=== PATIENT | female | born 1990 | race Caucasian/White ===

== ENCOUNTER 2021-04-22 01:13 | Outpatient (CLI) | payer BC, MEDICAID, SELFPAY ==
--- NOTE | 2021-04-22 | DI.US_ITS ---
Exam(s) US OB 2-3 TRIMESTER W MOD EXAM: US OB 2-3 TRIMESTER W MOD CLINICAL HISTORY: ANATOMY SCAN. TECHNIQUE: Transabdominal obstetrical ultrasound was performed. COMPARISON: US US OB 1ST TRIMESTER from 02/05/2021 FINDINGS: There is a single viable intrauterine gestation with cardiac activity identified-149 bpm. Amniotic fluid: There is a normal amount of amniotic fluid. Placental location: The placenta is anterior grade 1,with no evidence of placenta previa.Distance fro m the tip of the placenta to the internal cervical os is 4.4 cm on today's study ANATOMY: A 3 vessel umbilical cord is seen. A four-chamber cardiac view was obtained. Right and left ventricular outflow tracts were imaged. There are no obvious abnormalities of the spinal column evident. There is no obvious abnormal ity of the anterior abdominal wall. stomach was not identified on today's study. Urinar y bladder was identified and there is no evidence of hydronephrosis. No abnormalities of the upper lip region are identified. No evidence of choroid plexus cysts i n the brain. Dating parameters place this at approximately 19 weeks and 6 days gestational age. BPD measures 19 weeks and 5 days HC measures 19 weeks and 5 days AC measures 20 weeks and 1 day FL measures 19 weeks and 5 days Estimated weight is 321 gm-0 pounds 11 ounces. Fetus is at the 49th percentile on the Hadlock scale. IMPRESSION:: Single viable intrauterine gestation which is approximately 19 weeks and 6 days gestati onal age, implying an ANDREW of September 10, 2021. There are no obvious anomalies evident on today's study. However, we were not able to identify the stomach on today's study. The placenta is anterior with no evidence of placenta previa. There is a normal amount of amniotic fluid. DATA REPOSITORY:
== END 2021-04-22 01:33 ==
PROVIDERS: PCP Internal Medicine; Visit Provider Midwife
DX: Z34.92 Encounter for supervision of normal pregnancy, unspecified, second trimester (principal); Z3A.19 19 weeks gestation of pregnancy
CPT/HCPCS: 76805

== ENCOUNTER 2021-05-27 01:53 | Outpatient (CLI) | payer MEDICAID, SELFPAY ==
--- NOTE | 2021-05-27 | DI.US_ITS ---
Exam(s) US OB F/U FACIAL/LVOT/RVOT EXAM: US OB F/U FACIAL/LVOT/RVOT CLINICAL HISTORY: F/U SURVEY, STOMACH. TECHNIQUE: Transabdominal obstetrical ultrasound was performed. COMPARISON: US US OB 2-3 TRIMESTER W MOD from 04/22/2021 FINDINGS: There is a single viable intrauterine gestation with cardiac activity identified-136 bpm The fetus is presently in breech position . Amniotic fluid: There is a normal amount of amniotic fluid. Placental location: The placenta is anterior grade 1,with no evidence of placenta previa. ANATOMY: On today's study the stomach was identified, this completing the survey Dating parameters were not performed today IMPRESSION:: Viable intrauterine gestation. survey completed DATA REPOSITORY:
== END 2021-05-27 02:13 ==
PROVIDERS: PCP Internal Medicine; Visit Provider Midwife
DX: Z34.92 Encounter for supervision of normal pregnancy, unspecified, second trimester (principal)
CPT/HCPCS: 76815

== ENCOUNTER → 2025-07-17 02:06 | Outpatient (CLI) | payer OTHER, SELFPAY ==
--- NOTE | 2025-07-17 09:30 | DI.US_ITS ---
Exam(s) US OB SRIRAM, WEIGHT BIO PROF. EXAM: US OB SRIRAM, WEIGHT BIO PROF. CLINICAL HISTORY: O48.0,Z34.83 Postdates monitoring in 41st week , ANDREW 07[birth year]-25. TECHNIQUE: Transabdominal obstetrical ultrasound was performed. COMPARISON: US US OB 1ST TRIMESTER from 11/28/2023 FINDINGS: FINDINGS: BREATHING MOVEMENTS: 2 GROSS MOVEMENTS: 2 TONE: 2 AMNIOTIC FLUID VOLUME: 2 SRIRAM = 11.2 cm FHR= 131 bpm The fetus is presently in cephalic position. Placenta is anterior grade 2-3 with no evidence of placenta previa. The distance between the tip of the placenta and the internal cervical os is greater than 5 cm. There is normal amount of amniotic fluid with SRIRAM= 11.2 cm. Dating parameters: BPD measures 38 weeks and 4 days Head circumference measures 39 weeks and 5 days Abdominal circumference measures 37 weeks and 5 days Femur length measures 38 weeks and 5 days Estimated weight is 3441 grams-7 pounds, 9 ounces Out of range on the Hadlock scale. IMPRESSION: Biophysical profile is 8/8, with no points deducted. Single viable intrauterine gestation which is approximately 30 weeks and 4 days gestational age by ultrasound dating, weighing 3441 grams (7 pounds 9 ounces). Placenta is anterior grade two-three. No evidence of placenta previa. DATA REPOSITORY:
== END ==
PROVIDERS: PCP Internal Medicine; Visit Provider Midwife
DX: O48.0 Post-term pregnancy (principal); Z3A.41 41 weeks gestation of pregnancy
CPT/HCPCS: 76816; 76819

== ENCOUNTER 2025-07-17 07:44 | Outpatient (CLI) | payer OTHER, SELFPAY ==
[2025-07-17 10:14] VITALS: BP 121/76; PULSE 73
[2025-07-17 10:16] VITALS: BP 121/76; PULSE 73; TEMP 36.7
[2025-07-17 10:58] VITALS: BP 121/76; PULSE 73; TEMP 36.7
--- NOTE | 2025-07-17 10:58 | W.OBNST ---
Date of service: 07/17/25 Time of Service: 10:58 NST Evaluation Reason for NST Reasons for Nonstress Test: POSTDATES and OTHER, SEE COMMENT Gestational Age Gestational Age in Weeks and Days: 41 Weeks and 1Days Test and Monitor Explained Test/Monitor Explained: Test Explained, Monitor Explained and Patient Verbalized Understanding Vital Signs Blood Pressure: 121/76 Pulse: 73 Temperature: 98.1 F NST Information Date on Monitor: 07/17/25 Time on Monitor: 10:13 Date off Monitor: 07/17/25 Time off Monitor: 10:49 Total Time on Monitor: 36 NST Interventions: PO Hydration Contraction Frequency: 7 minutes, irregular NST Evaluation Patient States Movement: Present FHR Baseline: 125 Variability: Moderate 6-25 bpm Accelerations: 15x15 Decelerations: None NST Results: Reactive Note Ultrasound Done: N/A. NST Note Note: Category 1, reactive NST KLEBER NST Reviewed and Verified by: Jennie Torres
== END 2025-07-17 10:54 ==
LOC: BCD 07:44 → OBS 10:01
PROVIDERS: PCP Internal Medicine; Visit Provider Obstetrics & Gynecology
DX: O48.0 Post-term pregnancy (principal); Z3A.41 41 weeks gestation of pregnancy
CPT/HCPCS: 59025